=== PATIENT | male | born 1975 | race Two or more races ===

== ENCOUNTER 2020-02-27 15:59 | Emergency (ER) | payer OTHER ==
[~2020-02-27] VITALS: Ht 170.2 cm; Wt 63.5 kg
[2020-02-27 16:06] VITALS: BP 105/61
== END 2020-02-27 16:56 | disposition home or self-care (01) ==
LOC: ER 15:59
DX: J18.9 Pneumonia, unspecified organism (principal)
CPT/HCPCS: 71045; 87804; 87880